=== PATIENT | male | born 1935 | race Caucasian/White ===

== ENCOUNTER 2016-05-31 05:57 | Day surgery (SDC) | payer MEDICARE ==
[~2016-05-31] VITALS: Ht 157.5 cm; Wt 63.6 kg
[~2016-05-31 05:57] MED LIST: SIMV20TA6 PO
--- OUTSIDE RECORDS SUMMARY | 2016-05-31 06:02 | XMS REPORT ---
Author Author Familia Ramirez Organization [facility] Address [address] [place] [address] Care Team Providers Care Service Delivery Management Consultant Name Role Phone Familia Ramirez Unavailable [phone] PROBLEMS Type Condition ICD9-CM Code [id number] Code Onset Dates Condition Status SNOMED Code Assessment Sinus bradycardia R00.1 Jan, Active 95174690 Problem Sinus bradycardia R00.1 Active 77962734 Problem Presence of cardiac pacemaker Z95.0 Active 637625633 Problem S/P Pacemaker Placement - Dual V45.01 Active 737255289 Problem Dyslipidemia 272.4 Active 616477068 Problem Pulmonary hypertension I27.2 Active 04214746 Problem Hyperlipidemia, unspecified E78.5 Active 08537349 ALLERGIES Substance Reaction Event Type Date Status N.K.D.A. Unknown Non Drug Allergy Jan, Unknown SOCIAL HISTORY No smoking Hx information available PLAN OF CARE VITAL SIGNS Height 5 ft 2 in in 2016-01-26 Weight 147.6 lbs 2016-01-26 BMI 26.99 kg/m2 2016-01-26 Oximetry 98 % 2016-01-26 Heart Rate 91 /min 2016-01-26 Blood pressure systolic 98 mm Hg 2016-01-26 Blood pressure diastolic 60 mm Hg 2016-01-26 MEDICATIONS Medication Instructions Dosage Frequency Start Date End Date Duration Status Multi Vitamin/Minerals Orally Once a day 1 tablet 24h Active Calcium 600 MG Orally Once a day 1 tablet 24h Active Fish Oil 2000 mg Orally Once a day 1capsule 24h Active Simvastatin 20 mg Orally Once a day 1 tablet 24h Active Ranitidine Acid [employer] 75 MG Orally once a day 1 tablet as needed 24h Active Aspir-81 81 MG Orally Once a day 1 tablet 24h 30 day(s) Active Fish Oil 1500 Orally Once a day 1capsule 24h Active Aspirin 81 MG Orally Once a day 1 tablet 24h Active RESULTS Name Result Date Reference Range AtriaECW PROCEDURES Procedure Date Ordered Related Diagnosis Body Site ELECTROCARDIOGRAM, COMPLETE Jan 26, 2016 Office Visit, Est Pt., Level 3 Jan 26, 2016 IMMUNIZATIONS No Known Immunizations
--- OUTSIDE RECORDS SUMMARY | 2016-05-31 06:02 | XMS REPORT ---
Author Author Familia Ramirez Organization [employer] Address Unknown Phone Unavailable Care Team Providers Care Offender Job Retention Specialist Name Role Phone Familia Ramirez CP Unavailable Allergies, Adverse Reactions, Alerts Substance Reaction Event Type N.K.D.A. 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.1 Active Problem Dyslipidemia 272.4 Active Assessment Sinus bradycardia R00.1 Active Problem Hyperlipidemia, unspecified E78.5 Active Problem S/P Pacemaker Placement - Dual V45.01 Active Medications Medication Code System Code Instructions Start Date End Date Status Dosage Simvastatin [facility] [address]-13 20 mg Orally Once a day 1 tablet Fish Oil [facility] [address]-63 2000 mg Orally Once a day 1capsule Omeprazole [facility] [address]-63 20 MG Orally prn 1 capsule Calcium [facility] [address] 600 MG Orally Once a day 1 tablet Multi Vitamin/Minerals [facility] [address]-54 Orally Once a day 1 tablet Aspir-81 [facility] [address]-03 81 MG Orally Once a day Jan 12, 2015 1 tablet Procedures Procedure Coding System Code Date Ofc Interrogation PM, Staff CPT-4 63310 Jan 12, 2015 Office Visit, Est Pt., Level 3 CPT-4 57736 Jan 12, 2015 Vital Signs Date/Time: Jan 12, 2015 BMI 26.15 Index Weight 143 lbs Height 5 ft 2 in in Cardiac Monitoring Heart Rate 82 /min Oximetry 98 % Blood Pressure Diastolic 68 mm Hg Blood Pressure Systolic 108 mm Hg Results No Known Results Summary Purpose [employer] Submission
--- OUTSIDE RECORDS SUMMARY | 2016-05-31 06:02 | XMS REPORT ---
Author Author Familia Ramirez Organization [employer] Address Unknown Phone Unavailable Care Team Providers Care Financial Assistant Name Role Phone Familia Ramirez CP Unavailable Allergies No Known Allergies Problems Problem Type Condition Code Onset Dates Condition Status Problem Presence of cardiac pacemaker Z95.0 Active Problem Pulmonary hypertension I27.2 Active Problem Sinus bradycardia R00.1 Active Problem Dyslipidemia 272.4 Active Problem Hyperlipidemia, unspecified E78.5 Active Problem S/P Pacemaker Placement - Dual V45.01 Active Medications No Known Medications Results No Known Results Summary Purpose [employer] Submission
[2016-05-31 06:22] VITALS: BP 114/68; PULSE 71; RESP 20; TEMP 97.9; O2SAT 100
[2016-05-31 06:23] VITALS: Ht 157.5 cm; Wt 63.6 kg
[2016-05-31] MEDS ORDERED: PROPOFOL 500mg 50 ML IV ONE (06:40)
[2016-05-31] MEDS ORDERED: LIDOCAINE 1% (10mg/ml) 2ml SDV INJ ONE (07:00)
[2016-05-31] MEDS ORDERED: LR 1,000 ML IV PRN (07:00)
--- NOTE | 2016-05-31 07:00 | ANESPREOP ---
Anesthesia Record Date and Time DATE: 05/31/16 TIME: 06:58 Pre-Op Diagnosis screening colonoscopy Proposed Surgical Procedure COLONOSCOPY NPO since: 2199 Allergies: Coded Allergies: No Known Allergies (Unverified , 05/31/16) Ht/Wt/BMI Height: 5 ' 2.00 " Weight: 63.600 kg BMI: 25.7 kg/m2 Vital Signs Date Time Temp Pulse Resp B/P Pulse Ox O2 Delivery O2 Flow Rate FiO2 05/31/16 06:22 97.9 71 20 114/68 100 Room Air Medications Inpatient Medications Current Medications Medications (Trade) Dose Ordered Sig/Gilberto Start Time Stop Time Status Last Admin Dose Admin Lactated Ringer's (Lactated Ringers) 1,000 ml @ 50 mls/hr Q20H PRN 05/31/16 07:00 05/31/16 06:40 50 MLS/HR Simvastatin (Simvastatin) 20 Mg Tablet, 1 TAB PO DAILY, (Reported) Last Taken: on 05/29/161999 Currently on Beta Micheal: No Medical/Surgical History Anesthesia PMH: Reports: Hyperlipidemia, Pacemaker, Denies: Anesthesia Reactions (NO AIRWAY ISSUES), Cancer, Clotting Problems, Glaucoma, Malignant Hyperthermia, Renal Disease, Sleep Apnea Smoking Status: Never smoker Has pt. smoked today?: No Use Chewing Tobacco?: No Second Hand Exposure: No Substance Use Type: does not use Alcohol Intake: none Past Surgical History Orthopedic Surgeries: Yes - CTR-RIGHT WRIST Abdominal Surgeries: Genitourinary Surgeries: Cardiac Surgeries: Yes - PACEMAKER X 2 Endocrine Surgeries: Reproductive Surgeries: Neurological Surgeries: Ear Surgeries: Nose Surgeries: Throat Surgeries: Other Surgeries: Yes - COLONOSCOPY Anesthesia Adverse Reactions: FOUND none Family Hx of Anesthesia Advers: none Hx of Motion Sickness: No Pertinent Findings EKG Rhythm: Sinus Rhythm (atrial paced) Physical Exam Respiratory: Lungs clear Cardiovascular: FOUND Regular rate, rhythm, FOUND No murmur Airway Assessment Mallampati Score: II TMD: 3 Fingerbreadths Neck Extension: Good Teeth: Chipped Teeth/Crowns Overall Assessment: No Airway Concerns ASA: 2 Plan Anesthesia Plan: TIVA Discussion Discussed risks/options/alternatives of anesthesia and questions answered. Patient consents. Nursing pain assessment noted. Present: Spouse Attestation Statement Prior to the delivery of any anesthetic medication, I examined the patient, developed the plan, obtained the patient's consent and discussed the risk and benefits of the procedure with the patient/guardian. CHRISTIAN JOHNSON I TREATMENT PLANT OPERATOR May 31, 2016 07:00
[2016-05-31 07:53] VITALS: BP 95/57; PULSE 61; RESP 16; TEMP 97.2; O2SAT 100
[2016-05-31 08:03] VITALS: BP 100/59; O2SAT 95
[2016-05-31 08:18] VITALS: BP 130/71; PULSE 68; RESP 24; O2SAT 99
--- NOTE | 2016-05-31 08:25 | ANESPO ---
Post-Op Note Date 05/31/16 Time: 08:24 Status Pt Participated in Evaluation: Pt participated by phone Vital Signs Date Time Temp Pulse Resp B/P Pulse Ox O2 Delivery O2 Flow Rate FiO2 05/31/16 08:18 68 24 130/71 99 Room Air 05/31/16 07:53 97.2 4.00 Respiratory Function: Airway patent, Regular respirations Cardiovascular Function: Regular pulse Pain Level Intensity: 0 Unable to Assess Pain Due To: Pt Sleeping Hydration: Taking po fluids Complications during Recovery None apparent Follow-Up Instructions Instructions Per Surgeon CHRISTIAN JOHNSON CRNA May 31, 2016 08:25
--- NOTE | 2016-05-31 15:50 | OPNOTEF ---
DATE OF OPERATION 05/31/2016 PREOPERATIVE DIAGNOSIS Screening colonoscopy. POSTOPERATIVE DIAGNOSIS 3 mm nodular polyp in the ascending colon near the hepatic flexure, and mild diverticular disease. OPERATION Colonoscopy, with cold forceps polypectomy of polyp in the ascending colon. SURGEON Harry Heath M.D. DESCRIPTION OF OPERATIVE PROCEDURE The patient was prepped with Colyte the evening prior to the procedure. He was placed in the left lateral position. After a benign digital rectal exam, the colonoscope was inserted and advanced to the cecum with cecal landmarks identified. The scope was slowly retracted with a 3 mm nodular polyp noted in the distal ascending colon near the hepatic flexure. This was biopsied with cold forceps and appeared to be completely removed with several bites taken. No residual polyp was left grossly. The remainder of the transverse colon, sigmoid colon and rectum were unremarkable except for a few scattered diverticula in the sigmoid colon. The rectum and anus were clear. The colon was suctioned. The scope removed with patient tolerating the procedure well. Follow up as indicated clinically as well as by pathology from what appeared to be a benign polyp. DEBBIE
== END 2016-05-31 08:35 | disposition home or self-care (01) ==
LOC: NSC 05:57
DX: Z12.11 Encounter for screening for malignant neoplasm of colon (principal); D12.2 Benign neoplasm of ascending colon; K57.30 Diverticulosis of large intestine without perforation or abscess without bleeding; N40.0 Benign prostatic hyperplasia without lower urinary tract symptoms; E78.00 Pure hypercholesterolemia, unspecified; Z79.82 Long term (current) use of aspirin; Z79.899 Other long term (current) drug therapy; Z95.0 Presence of cardiac pacemaker
CPT/HCPCS: 45380; J7120; 88305